=== PATIENT | female | born 1980 | race American Indian/Alaskan Native ===

== ENCOUNTER 2018-02-01 14:33 | Emergency (ER) | payer BC ==
[2018-02-01 15:12] VITALS: BMI 23.0
[2018-02-01 15:17] VITALS: RESP 18; TEMP 98.6; O2SAT 98
[2018-02-01] MEDS ORDERED: Tobramycin 0.3% OPHT SOLN OS STA (15:43)
--- NOTE | 2018-02-01 15:46 | ED PDOC ---
Arrival/HPI - General Chief Complaint: Eye Problem Time Seen by Provider: 02/01/18 15:43 Historian: Patient - History of Present Illness Narrative History of Present Illness (Text): 02/01/18 15:43 37yo female with no pmhx present with complaint of right eye pain, teary, redness and swelling since this morning. states pain started gradually this morning and became worse this morning.She is not sure if she scratched her eye. She denies photophobia, visual acuity change, headache, focal weakness, any other complaint. She notes she is up to date with her TD booster. Past Medical History - Provider Review Nursing Documentation Reviewed: Yes - Infectious Disease Hx of Infectious Diseases: None - Psychiatric Hx Substance Use: Yes - Anesthesia Hx Anesthesia: No Family/Social History - Physician Review Nursing Documentation Reviewed: Yes Family/Social History: Unknown Family HX Smoking Status: Heavy Smoker > 10 Cigarettes Daily Hx Alcohol Use: Yes Frequency of alcohol use: Daily Hx Substance Use: Yes Substance used: marijuana Allergies/Home Meds Allergies/Adverse Reactions: Allergies No Known Allergies Allergy (Verified 02/01/18 15:12) Home Medications: Home Meds Medication Instructions Recorded Confirmed No Known Home Med 02/01/18 02/01/18 Review of Systems - Physician Review All systems were reviewed & negative as marked: Yes - Review of Systems Constitutional: Normal Eyes: Eye Pain (Right eye). absent: Photophobia ENT: Normal Respiratory: Normal Cardiovascular: Normal Gastrointestinal: Normal Genitourinary Female: Normal Musculoskeletal: Normal Skin: Normal Neurological: Normal Endocrine: Normal Hemo/Lymphatic: Normal Psychiatric: Normal Physical Exam Vital Signs Reviewed: Yes Vital Signs Temp Pulse Resp BP Pulse Ox 02/01/18 15:16 98.6 F 85 18 143/86 98 Temperature: Afebrile Blood Pressure: Normal Pulse: Regular Respiratory Rate: Normal Appearance: Positive for: Well-Appearing, Non-Toxic, Comfortable Pain Distress: None Mental Status: Positive for: Alert and Oriented X 3 - Systems Exam Head: Present: Atraumatic, Normocephalic Pupils: Present: PERRL Extroacular Muscles: Present: EOMI Conjunctiva: Present: Injected (right eye), Icteric (right eye redness), Other ( Tearing and small linear florescin uptake noted on right cornea at 6 oclock position) Mouth: Present: Moist Mucous Membranes Neck: Present: Normal Range of Motion Respiratory/Chest: Present: Clear to Auscultation, Good Air Exchange. No: Respiratory Distress, Accessory Muscle Use Cardiovascular: Present: Regular Rate and Rhythm, Normal S1, S2. No: Murmurs Abdomen: No: Tenderness, Distention, Peritoneal Signs Back: Present: Normal Inspection Upper Extremity: Present: Normal Inspection. No: Cyanosis, Edema Lower Extremity: Present: Normal Inspection. No: Edema Neurological: Present: GCS=15, CN II-XII Intact, Speech Normal Skin: Present: Warm, Dry, Normal Color. No: Rashes Psychiatric: Present: Alert, Oriented x 3, Normal Insight, Normal Concentration Disposition/Present on Arrival - Present on Arrival Any Indicators Present on Arrival: No History of DVT/PE: No History of Uncontrolled Diabetes: No Urinary Catheter: No History of Decub. Ulcer: No History Surgical Site Infection Following: None - Disposition Have Diagnosis and Disposition been Completed?: Yes Diagnosis: Corneal abrasion Disposition: HOME/ ROUTINE Disposition Time: 15:50 Patient Plan: Discharge Condition: STABLE Discharge Instructions (ExitCare): Corneal Abrasion Additional Instructions: Follow up with your doctor/Telegraph Office Manager Return to ED for any new or worsening symptoms Referrals: Saman Christensen MD [Staff Provider] - Follow up with primary
[2018-02-01 16:21] VITALS: BP 124/78; PULSE 76
== END 2018-02-01 16:21 | disposition home or self-care (01) ==
LOC: ED 14:33
DX: S05.01XA Injury of conjunctiva and corneal abrasion without foreign body, right eye, initial encounter (principal); X58.XXXA Exposure to other specified factors, initial encounter; Y92.9 Unspecified place or not applicable

== ENCOUNTER 2018-03-22 18:35 | Emergency (ER) | payer BC ==
[2018-03-22 18:39] VITALS: BMI 25.6
[2018-03-22 18:44] VITALS: BP 131/90; PULSE 90; RESP 18; TEMP 98.8; O2SAT 97
[2018-03-22] MEDS ORDERED: DiphenhydrAMINE 12.5 mg/5 ml LIQ UD (5 ml) PO STA (18:54)
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
== END 2018-03-22 19:20 | disposition home or self-care (01) ==
LOC: ED 18:35
DX: L50.9 Urticaria, unspecified (principal); F17.210 Nicotine dependence, cigarettes, uncomplicated

== ENCOUNTER 2018-05-07 19:11 | Emergency (ER) | payer BC ==
[2018-05-07 19:11] VITALS: BMI 25.6
[2018-05-07 19:35] VITALS: BP 139/90; PULSE 75; RESP 18; TEMP 98.1
--- NOTE | 2018-05-07 20:08 | ED PDOC ---
Arrival/HPI - General Chief Complaint: Back Pain Time Seen by Provider: 05/07/18 19:22 Historian: Patient - History of Present Illness Narrative History of Present Illness (Text): 05/07/18 20:04 A 38 year old female with no significant past medical history presents to the emergency department for evaluation of lower back and tailbone discomfort since 2 days ago. Patient reports she accidentally slid and fell on her back side and state she is able to ambulate without any difficulty but complains of persistent symptoms. Patient denies any fever, chills, chest pain, shortness of breath, nausea, vomiting, diarrhea, urinary symptoms, neck pain, headache, dizziness, or any other complaints. Time/Duration: Other (2 days ago) Symptom Onset: Sudden Activities at Onset: Light Context: Home Past Medical History - Provider Review Nursing Documentation Reviewed: Yes - Infectious Disease Hx of Infectious Diseases: None - Musculoskeletal/Rheumatological Other/Comment: Scoliosis - Psychiatric Hx Substance Use: Yes - Surgical History Hx Dilation and Curettage: Yes - Anesthesia Hx Anesthesia: Yes Hx Anesthesia Reactions: No Hx Malignant Hyperthermia: No Family/Social History - Physician Review Nursing Documentation Reviewed: Yes Family/Social History: Unknown Family HX Smoking Status: Heavy Smoker > 10 Cigarettes Daily Hx Alcohol Use: Yes Frequency of alcohol use: Socially Hx Substance Use: Yes Substance used: marijuana Allergies/Home Meds Allergies/Adverse Reactions: Allergies No Known Allergies Allergy (Verified 02/01/18 15:12) Review of Systems - Physician Review All systems were reviewed & negative as marked: Yes - Review of Systems Constitutional: absent: Fevers, Night Sweats Respiratory: absent: SOB Cardiovascular: absent: Chest Pain Gastrointestinal: absent: Diarrhea, Nausea, Vomiting Genitourinary Female: absent: Urine Output Changes Musculoskeletal: Back Pain. absent: Neck Pain Neurological: absent: Headache, Dizziness Physical Exam Vital Signs Reviewed: Yes Vital Signs Temp Pulse Resp BP Pulse Ox 05/07/18 19:34 98.1 F 75 18 139/90 97 Temperature: Afebrile Blood Pressure: Normal Pulse: Regular Respiratory Rate: Normal Appearance: Positive for: Well-Appearing, Non-Toxic, Comfortable Pain Distress: None Mental Status: Positive for: Alert and Oriented X 3 - Systems Exam Head: Present: Atraumatic, Normocephalic Pupils: Present: PERRL Extroacular Muscles: Present: EOMI Conjunctiva: Present: Normal Mouth: Present: Moist Mucous Membranes Neck: Present: Normal Range of Motion Respiratory/Chest: Present: Clear to Auscultation, Good Air Exchange. No: Respiratory Distress, Accessory Muscle Use Cardiovascular: Present: Regular Rate and Rhythm, Normal S1, S2. No: Murmurs Abdomen: No: Tenderness, Distention, Peritoneal Signs Back: Present: Midline Tenderness (+minimal midline tenderness over coccyx area) , Paraspinal Tenderness (+mild paralumbar tenderness, spasms noted). No: Normal Inspection (no dorsal spinal tenderness) Upper Extremity: Present: Normal Inspection, Normal ROM. No: Cyanosis, Edema Lower Extremity: Present: Normal Inspection. No: Edema Neurological: Present: GCS=15, CN II-XII Intact, Speech Normal. No: Other (no neural or focal deficits) Skin: Present: Warm, Dry, Normal Color. No: Rashes Psychiatric: Present: Alert, Oriented x 3, Normal Insight, Normal Concentration Medical Decision Making ED Course and Treatment: 05/07/18 20:19 Impression: 38 year old female presenting to the emergency department complaining of lower back pain. Plan: -- Flexeril -- Motrin tablet -- X-ray of LS spine with OBL -- X-ray of coccyx -- Reassess and disposition Prior Visits: Notes and results from previous visits were reviewed. Progress Notes: 05/07/18 20:56 X-rays reviewed, shows no acute processes and positive for scoliosis on the LS spine. - RAD Interpretation Radiology Orders: 05/07/18 19:41 LS SPINE WITH OBL > 18 YRS OLD [RAD] Stat 05/07/18 19:46 SACRUM &/or COCCYX (MIN 2VW) [RAD] Stat - Medication Orders Current Medication Orders: Discontinued Medications Cyclobenzaprine HCl (Flexeril) 10 mg PO STAT STA Stop: 05/07/18 19:51 Last Admin: 05/07/18 20:03 Dose: 10 mg Ibuprofen (Motrin Tab) 600 mg PO STAT STA Stop: 05/07/18 19:51 Last Admin: 05/07/18 20:03 Dose: 600 mg MAR Pain/Vitals Document 05/07/18 20:03 SS (Rec: 05/07/18 20:03 SS [id number]) Pain Reassessment Is This A Pain ReAssessment? No Sleep Is patient sleeping during reassessment? No Presence of Pain Presence of Pain Yes Location Upper or Lower Lower Pain Location Body Site Back - Scribe Statement The provider has reviewed the documentation as recorded by the Maylinibkathia Christensen All medical record entries made by the Scribe were at my direction and personally dictated by me. I have reviewed the chart and agree that the record accurately reflects my personal performance of the history, physical exam, medical decision making, and the department course for this patient. I have also personally directed, reviewed, and agree with the discharge instructions and disposition. Disposition/Present on Arrival - Present on Arrival Any Indicators Present on Arrival: No History of DVT/PE: No History of Uncontrolled Diabetes: No Urinary Catheter: No History of Decub. Ulcer: No History Surgical Site Infection Following: None - Disposition Have Diagnosis and Disposition been Completed?: Yes Diagnosis: Low back strain, Muscle spasm Disposition: HOME/ ROUTINE Disposition Time: 21:29 Patient Plan: Discharge Patient Problems: Current Active Problems Problem Status Onset Low back strain Acute Muscle spasm Acute Condition: GOOD Discharge Instructions (ExitCare): Low Back Pain (DC), Muscle Spasms (DC), Lumbar Muscle Strain (DC) Additional Instructions: Rest/no strenuous physical activity/take meds as prescribed/follow up with your doctor Prescriptions: Cyclobenzaprine [Cyclobenzaprine HCl] 10 mg PO TID PRN #15 tab PRN Reason: Muscle Spasm Ibuprofen [Motrin] 600 mg PO Q8 PRN #16 tab PRN Reason: Pain, Moderate (4-7) Forms: [facility] (Icelandic), WORK NOTE
[2018-05-07 21:41] VITALS: O2SAT 99
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
== END 2018-05-07 21:50 | disposition home or self-care (01) ==
LOC: ED 19:11
DX: S39.012A Strain of muscle, fascia and tendon of lower back, initial encounter (principal); W01.0XXA Fall on same level from slipping, tripping and stumbling without subsequent striking against object, initial encounter; Y92.9 Unspecified place or not applicable; M62.838 Other muscle spasm

== ENCOUNTER 2018-05-31 21:57 | Emergency (ER) | payer BC ==
[2018-05-31 22:50] VITALS: BMI 31.1
[2018-05-31 22:53] VITALS: RESP 18
[2018-05-31] MEDS ORDERED: Sodium Chloride 0.9% 1,000 ML IV STA (23:25)
[2018-05-31 23:48] LABS: PH,URINE 6.5 (4.7-8.0); URINE BILIRUBIN NEGATIVE (NEGATIVE); URINE BLOOD MODERATE (NEGATIVE); URINE GLUCOSE (UA) NEGATIVE (NEGATIVE); URINE LEUKOCYTE ESTERASE TRACE Leu/uL (NEGATIVE); URINE PROTEIN NEGATIVE mg/dL (<30 mg/dL)
[2018-05-31 23:53] LABS: BASO # 0.05 K/mm3 (0.0-2.0); EOS # 0.2 (0.0-0.7); EOS % 3.8 % (1.5-5.0); GRAN # 2.21 (1.4-6.5); GRAN % 42.5 % (50.0-68.0); HEMOGLOBIN 13.1 g/dL (12.0-16.0); LYMPH # 2.4 (1.2-3.4); LYMPH % 45.2 % (22.0-35.0); MEAN CELL VOLUME 88.3 fl (80.0-105.0); MEAN CORPUSCULAR HEMOGLOBIN 30.5 pg (25.0-35.0); MEAN CORPUSCULAR HGB CONC 34.6 g/dl (31.0-37.0); MEAN PLATELET VOLUME 11.2 fl (7.0-11.0); MONO # 0.4 (0.1-0.6); MONO % 7.5 % (1.0-6.0); RBC 4.29 10^6/uL (3.5-6.1); RED CELL DISTRIBUTION WIDTH 14.2 % (11.5-14.5); WHITE BLOOD COUNT 5.2 10^3/ul (4.5-11.0)
[2018-05-31 23:54] LABS: URINE APPEARANCE SL CLOUDY (CLEAR); URINE COLOR YELLOW (YELLOW)
[2018-06-01 00:10] LABS: ALB/GLOB RATIO 1.5 (1.1-1.8); ALBUMIN 4.7 g/dL (3.0-4.8); ALT/SGPT 105 U/L (7-56); AST/SGOT 204 U/L (14-36); BLOOD UREA NITROGEN 4 mg/dL (7-21); CALCIUM 9.4 mg/dL (8.4-10.5); GFR NON-AFRICAN AMERICAN > 60; LIPASE 116 U/L (23-300)
[2018-06-01] MEDS ORDERED: Potassium Chloride 20 mEq/15 ml LIQ UD PO STA ×2 (00:11→02:02)
--- NOTE | 2018-06-01 00:36 | ED PDOC ---
Addendum entered and electronically signed by Freeman COLINDRES,Cheyenne Frankel PA-C 06/04/18 16:40: Addendum Addendum: 06/04/18 16:39 Urine cx : +e coli. Pt was called and Rx for macrobid was sent. Pt was called today by me and she states she was called yesterday by another provider and the Rx was called to her pharmacy. States that she is aware she has a UTI and understands that she needs to f/u regarding the urine results. Original Note: Arrival/HPI - General Chief Complaint: Abdominal Pain Time Seen by Provider: 05/31/18 22:04 Historian: Patient - History of Present Illness Narrative History of Present Illness (Text): 05/31/18 23:20 38 year old female, with no significant past medical history, presents to the emergency department complaining of intermittent upper abdominal pain. Patient states she gets the pain mostly when coughing and straining herself. Patient states she had the cough now for about 2 months. Patient is currently on her menstrual period. She also reports diarrhea yesterday and today, and said her urine smells, but denies any fever, chills, chest pain, shortness of breath, nausea, vomiting, other urinary symptoms, back pain, neck pain, headache, dizziness, or any other complaints. PMD: Dr. Masha Hernandez Symptom Onset: Gradual Symptom Course: Unchanged Activities at Onset: Light Context: Home Past Medical History - Provider Review Nursing Documentation Reviewed: Yes - Infectious Disease Hx of Infectious Diseases: None - Musculoskeletal/Rheumatological Other/Comment: Scoliosis - Psychiatric Hx Substance Use: Yes - Surgical History Hx Dilation and Curettage: Yes - Anesthesia Hx Anesthesia: Yes Hx Anesthesia Reactions: No Hx Malignant Hyperthermia: No Family/Social History - Physician Review Nursing Documentation Reviewed: Yes Family/Social History: No Known Family HX Smoking Status: Heavy Smoker > 10 Cigarettes Daily Hx Alcohol Use: Yes Hx Substance Use: Yes Substance used: marijuana Allergies/Home Meds Allergies/Adverse Reactions: Allergies No Known Allergies Allergy (Verified 02/01/18 15:12) Review of Systems - Physician Review All systems were reviewed & negative as marked: Yes - Review of Systems Constitutional: absent: Fevers, Other (chills) Respiratory: absent: SOB Cardiovascular: absent: Chest Pain Gastrointestinal: Abdominal Pain, Diarrhea. absent: Nausea, Vomiting Genitourinary Female: Other (urine smells). absent: Dysuria, Frequency, Hematuria Musculoskeletal: absent: Back Pain, Neck Pain Neurological: absent: Headache, Dizziness Physical Exam Vital Signs Reviewed: Yes Vital Signs Temp Pulse Resp BP Pulse Ox 06/01/18 00:03 71 18 138/100 H 97 05/31/18 23:18 61 18 166/103 H 100 05/31/18 22:50 98.1 F 67 18 193/125 H 99 Temperature: Afebrile Blood Pressure: Hypertensive Pulse: Regular Respiratory Rate: Normal Appearance: Positive for: Well-Appearing, Non-Toxic, Comfortable Pain Distress: None Mental Status: Positive for: Alert and Oriented X 3 - Systems Exam Head: Present: Atraumatic, Normocephalic Pupils: Present: PERRL Extroacular Muscles: Present: EOMI Conjunctiva: Present: Normal Mouth: Present: Moist Mucous Membranes Neck: Present: Normal Range of Motion Respiratory/Chest: Present: Clear to Auscultation, Good Air Exchange. No: Respiratory Distress, Accessory Muscle Use Cardiovascular: Present: Regular Rate and Rhythm, Normal S1, S2. No: Murmurs Abdomen: No: Tenderness, Distention, Peritoneal Signs Back: Present: Normal Inspection Upper Extremity: Present: Normal Inspection. No: Cyanosis, Edema Lower Extremity: Present: Normal Inspection. No: Edema Neurological: Present: GCS=15, CN II-XII Intact, Speech Normal Skin: Present: Warm, Dry, Normal Color. No: Rashes Psychiatric: Present: Alert, Oriented x 3, Normal Insight, Normal Concentration Medical Decision Making ED Course and Treatment: 05/31/18 23:20 Impression: 38 year old female presents complaining of intermittent upper abdominal pain associated with a cough she had for the past 2 months. Also reports episode of diarrhea yesterday and today and foul odor to urine. Plan: -- Labs -- Pepcid, Potassium Chloride, IV Fluids, Zofran -- Urinalysis -- Urine Culture -- Reassess and disposition Prior Visits: Notes and results from previous visits were reviewed. Progress Notes: 06/01/18 01:10 Labs reviewed : wbc 5.2, k 3.0, ast 204, alt 105, t bili 0.7, lipase 116 CXR : NAD, as read by PA EKG : SB at 55 bpm, (-) acute ST changes, as read by PA On re-evaluation, patient is laying in bed comfortably in no acute distress. Abdomen still soft with minimal upper abdominal tenderness, no guarding, no rebound. Results d/w the patient. US abdomen ordered. KCl 40 mEq PO ordered. VS: P 71 BP 138/100 R 18 O2sat 06/01/18 01:40 Bedside abdominal US performed by ER , ABHIJIT is at the bedside, the GB was visualized and no gallstones were seen, CBD is noted to be in normal size without stones, there is no GB wall thickening. On second re-evaluation, patient without abdominal pain or nausea. Abdomen remains soft and non-tender. Given 2nd dose of KCl PO. Dx of hypokalemia d/w the patient. Advised to follow up with the clinic in 1-2 days without fail. Advised to take medication as prescribed. Return to the emergency room at any time for any new or worsening symptoms. Patient states she fully agrees with and understands discharge instructions. States that she agrees with the plan and disposition. Verbalized and repeated discharge instructions and plan. I have given the patient opportunity to ask any additional questions. - Lab Interpretations Lab Results: 05/31/18 23:30 05/31/18 23:30 Lab Results 05/31/18 23:30: Sodium 138, Potassium 3.0 L, Chloride 98, Carbon Dioxide 26, Anion Gap 16, BUN 4 L, Creatinine 0.7, Est GFR ( Amer) > 60, Est GFR (Non-Af Amer) > 60, Random Glucose 95, Calcium 9.4, Total Bilirubin 0.7, AST 204 H, ALT 105 H, Alkaline Phosphatase 43, Total Protein 8.0, Albumin 4.7, Globulin 3.2, Albumin/Globulin Ratio 1.5, Lipase 116 05/31/18 23:30: WBC 5.2, RBC 4.29, Hgb 13.1, Hct 37.9, MCV 88.3, MCH 30.5, MCHC 34.6, RDW 14.2, Plt Count 208, MPV 11.2 H, Gran % 42.5 L, Lymph % (Auto) 45.2 H, Harmon % (Auto) 7.5 H, Eos % (Auto) 3.8, Baso % (Auto) 1.0, Gran # 2.21, Lymph # (Auto) 2.4, Harmon # (Auto) 0.4, Eos # (Auto) 0.2, Baso # (Auto) 0.05 05/31/18 23:16: Urine Color Yellow, Urine Appearance Sl cloudy, Urine pH 6.5, Ur Specific Monona <= 1.005, Urine Protein Negative, Urine Glucose (UA) Negative, Urine Ketones Negative, Urine Blood Moderate H, Urine Nitrate Negative, Urine Bilirubin Negative, Urine Urobilinogen 1.0 H, Ur Leukocyte Esterase Trace H, Urine RBC Pending, Urine WBC Pending I have reviewed the lab results: Yes - Medication Orders Current Medication Orders: Discontinued Medications Famotidine (Pepcid) 20 mg IVP STAT STA Stop: 05/31/18 23:26 Last Admin: 05/31/18 23:36 Dose: 20 mg IVP Administration Document 05/31/18 23:36 GMD (Rec: 05/31/18 23:36 D [id number]) Charges for Administration # of IVP Administrations 1 Sodium Chloride (Sodium Chloride 0.9%) 1,000 mls @ 1,000 mls/hr IV .Q1H STA Stop: 06/01/18 00:24 Last Admin: 05/31/18 23:36 Dose: 1,000 mls/hr eMAR Start Stop Document 05/31/18 23:36 GMD (Rec: 05/31/18 23:36 D [id number]) Intravenous Solution Start Date 05/31/18 Start Time 23:36 End Date 06/01/18 End time 00:36 Total Infusion Time 60 Ondansetron HCl (Zofran Inj) 4 mg IVP STAT STA Stop: 05/31/18 23:26 Last Admin: 05/31/18 23:36 Dose: 4 mg IVP Administration Document 05/31/18 23:36 GMD (Rec: 05/31/18 23:36 D [id number]) Charges for Administration # of IVP Administrations 1 Potassium Chloride (Potassium Chloride Oral Soln) 40 meq PO STAT STA Stop: 06/01/18 00:12 - PA / ART EDUCATOR / Resident Statement MD/DO has reviewed & agrees with the documentation as recorded. - Scribe Statement The provider has reviewed the documentation as recorded by the Nakul Ennis Provider Scribe Attestation: All medical record entries made by the Scribe were at my direction and personally dictated by me. I have reviewed the chart and agree that the record accurately reflects my personal performance of the history, physical exam, medical decision making, and the department course for this patient. I have also personally directed, reviewed, and agree with the discharge instructions and disposition. Disposition/Present on Arrival - Present on Arrival Any Indicators Present on Arrival: No History of DVT/PE: No History of Uncontrolled Diabetes: No Urinary Catheter: No History of Decub. Ulcer: No History Surgical Site Infection Following: None - Disposition Have Diagnosis and Disposition been Completed?: Yes Diagnosis: Abdominal pain, Hypokalemia Disposition: HOME/ ROUTINE Disposition Time: 02:00 Patient Plan: Discharge Condition: STABLE Discharge Instructions (ExitCare): Hypokalemia (DC), Acute Abdomen (Belly Pain) Additional Instructions: Thank you for letting us take care of you today. You were treated for abdominal pain, hypokalemia. The emergency medical care you received today was directed at your acute symptoms. If you were prescribed any medication, please fill it and take as directed. It may take several days for your symptoms to resolve. Return to the Emergency Department if your symptoms worsen, do not improve, or if you have any other problems. Please contact your doctor in 2 days for re-evaluation and follow up / or call one of the physicians/clinics you have been referred to that are listed on the Patient Visit Information form that is included in your discharge packet. Bring any paperwork you were given at discharge with you along with any medications you are taking to your follow up visit. Our treatment cannot replace ongoing medical care by a primary care provider (PCP) outside of the emergency department. Thank you for allowing the [facility] team to be part of your care today. Prescriptions: Famotidine [Pepcid] 40 mg PO DAILY #20 tablet Referrals: Wing Hernandez, PCP [Primary Care Provider] - Follow up with primary Forms: [facility] (Faroese), WORK NOTE
[2018-06-01 00:39] LABS: URINE BACTERIA MOD (NEG)
[2018-06-01 02:24] VITALS: BP 160/67; PULSE 59; TEMP 98.5; O2SAT 99
--- NOTE | 2018-06-01 11:38 | CARD ---
APPROVED REPORT Date of service: 06/01/2018 EKG Measurement Heart [id number] MD [id number] <Conclusion> Sinus bradycardia Otherwise normal ECG
--- NOTE | 2018-06-01 17:35 | RAD ---
Date of service: 06/01/2018 HISTORY: cough COMPARISON: No prior. TECHNIQUE: Chest PA and lateral FINDINGS: LUNGS: No active pulmonary disease. PLEURA: No significant pleural effusion identified. No pneumothorax apparent. CARDIOVASCULAR: Normal. OSSEOUS STRUCTURES: No significant abnormalities. VISUALIZED UPPER ABDOMEN: Normal. OTHER FINDINGS: None. IMPRESSION: No active disease.
== END 2018-06-01 02:39 | disposition home or self-care (01) ==
LOC: ED 21:57
DX: R10.9 Unspecified abdominal pain (principal); E87.6 Hypokalemia
CPT/HCPCS: 71046; 80053; 81001; 83690; 85025; 87086; 87181; 93005; 96361; 96374; 96375; 99285; J2405; J7030

== ENCOUNTER 2018-10-14 21:34 | Emergency (ER) | payer BC | END 2018-10-14 22:52 | disposition left against medical advice (07) | LOC: ED 21:34 ==